=== PATIENT | female | born 1960 | race Caucasian/White ===

== ENCOUNTER 2017-01-03 11:58 | Outpatient (CLI) | payer OTHER ==
--- NOTE | 2017-01-06 13:28 | Mammography Report ---
DIGITAL SCREENING MAMMOGRAM: 01/03/2017 CLINICAL INDICATION: A 56-year-old for screening. The patient reports her last mammogram was more than 14 years ago at an unknown outside facility, so this will serve as a new base. TECHNIQUE: Routine CC and MLO projections were obtained of the breasts. FINDINGS: The breasts demonstrate scattered fibroglandular densities bilaterally. No suspicious mas ses, clustered microcalcifications, or regions of architectural distortion are identified. IMPRESSION: NEGATIVE EXAMINATION. RECOMMENDATION: Routine annual screening unless otherwise clinically indicated. BIRADS CATEGORY 1 - NEGATIVE. STANDARD QUALIFYING STATEMENTS 1. This examination was reviewed with the aid of Computer-Aided Detection (CAD). 2. A negative or benign imaging report should not delay biopsy if clinically suspicious findings are present. Consider surgical consultation if warranted. More than 5% of cancers are not identified by i maging. 3. Dense breasts may obscure an underlying neoplasm. JOB #: [id number] JOB #:[id number]
== END 2017-01-03 11:59 | disposition home or self-care (01) ==
LOC: DI.N 11:58
PROVIDERS: ATTEND Physician Assistant
DX: Z12.31 Encounter for screening mammogram for malignant neoplasm of breast (principal)
CPT/HCPCS: 77067

== ENCOUNTER 2019-05-27 17:28 | Outpatient (CLI) | payer OTHER | END 2019-05-27 17:29 | disposition home or self-care (01) | LOC: COV 17:28 | PROVIDERS: ATTEND Family Medicine | DX: R05 Cough (principal) | CPT/HCPCS: 81599 ==